=== PATIENT | female | born 1935 | race Hispanic/Latino ===

== ENCOUNTER 2017-12-12 20:09 | Observation (INO) | payer OTHER ==
[~2017-12-12] VITALS: Ht 154.9 cm; Wt 85.3 kg
[2017-12-12] MEDS ORDERED: METHYLPREDNISOLONE SOD SUCC 125MG/2ML VIAL ONE (20:30)
[2017-12-12] MEDS ORDERED: IPRATROPIUM/ALBUTEROL SULFATE 3 ML SOLUTION IH ONE (20:30)
[2017-12-12] MEDS ORDERED: ACETAMINOPHEN-CODEINE 300/30MG TAB ONE (20:31)
[2017-12-12 20:35] LABS: BASOPHILS % (AUTO) 0.7 % (0.0-5.0); EOSINOPHILS % (AUTO) 2.8 % (0.0-8.0); HEMATOCRIT 32.7 % (36-48); LYMPHOCYTES % (AUTO) 14.1 % (21.0-51.0); MEAN CORPUSCULAR HEMOGLOBIN 30.3 pg (27.0-33.0); MEAN CORPUSCULAR VOLUME 86.7 fL (79-99); NEUTROPHILS % (AUTO) 72.4 % (40.0-77.0); PLATELET COUNT (AUTO) 132 K/uL (130-400); RED BLOOD CELL COUNT(AUTO) 3.77 MIL/uL (4.00-5.50); RED CELL DISTRIBUTION WIDTH 14.7 % (11.0-15.5)
[2017-12-12 20:39] LABS: CREATININE 1.2 mg/dL (0.5-1.5); POTASSIUM 3.7 mmol/L (3.5-5.1)
[2017-12-12 20:44] LABS: ALBUMIN 3.4 g/dL (3.5-5.0); BILIRUBIN,TOTAL 0.3 mg/dL (0.2-1.0); TOTAL PROTEIN, SERUM 6.8 g/dL (6.0-8.3)
[2017-12-12] MEDS ORDERED: AZITHROMYCIN 500MG+NS 250ML 250 ML IV ONE (21:40)
[2017-12-12] MEDS ORDERED: SODIUM CHLORIDE 0.9% 50 ML IV ONE (21:40)
[2017-12-12] MEDS ORDERED: CEFTRIAXONE SODIUM 1 GM ONE (21:40)
[2017-12-12] MEDS: IPRATROPIUM/ALBUTEROL SULFATE 3 ML SOLUTION IH SCH (22:50)
[2017-12-12 22:52] VITALS: BP 157/73
[2017-12-13 03:00] VITALS: BP 154/81
[2017-12-13 04:24] LABS: ABG BASE EXCESS -2.4 mmol/L (-2.0-3.0); ABG HCO3 22.6 mmol/L (21.0-28.0); ABG OXYGEN SATURATION 95.5 % (95.0-99.0); ABG PCO2 40 mmHg (32-45)
[2017-12-13 04:28] LABS: APPEARANCE,URINE Clear (CLEAR); BILIRUBIN,URINE Negative (NEGATIVE); COLOR,URINE Yellow (YELLOW); GLUCOSE, URINE (UA) Negative (NEGATIVE); KETONES,URINE Negative (NEGATIVE); LEUKOCYTE ESTERASE ,URINE Negative (NEGATIVE); NITRATE,URINE Negative (NEGATIVE); OCCULT BLOOD,URINE Negative (NEGATIVE); PROTEIN,URINE POS 2+ (NEGATIVE); UROBILINOGEN,URINE 0.2 mg/dL (0.2-1.0)
[2017-12-13 04:45] LABS: BACTERIA,URINE Rare /HPF (None Seen); RBC,URINE 0-1 /HPF (0-1); SQUAMOUS EPITHELIAL CELL,UR 0-2 /HPF (0-2); WBC,URINE 0-1 /HPF (0-1)
[2017-12-13] MEDS: METHYLPREDNISOLONE SOD SUCC 125MG/2ML VIAL IVP SCH ×3 (05:42→21:01)
[2017-12-13 05:53] LABS: HEMATOCRIT 32.1 % (36-48); MEAN CORPUSCULAR HEMOGLOBIN 31.1 pg (27.0-33.0); MEAN CORPUSCULAR HGB CONC 35.8 g/dL (32.0-36.0); MEAN CORPUSCULAR VOLUME 86.8 fL (79-99); PLATELET COUNT (AUTO) 129 K/uL (130-400); RED BLOOD CELL COUNT(AUTO) 3.69 MIL/uL (4.00-5.50); RED CELL DISTRIBUTION WIDTH 14.5 % (11.0-15.5); WHITE BLOOD COUNT (AUTO) 4.7 K/uL (4.8-10.8)
[2017-12-13] MEDS: IPRATROPIUM/ALBUTEROL SULFATE 3 ML SOLUTION IH SCH ×3 (06:00→18:45)
[2017-12-13 06:09] LABS: B-TYPE NATRIURETIC PEPTIDE 276 pg/mL (0-100)
[2017-12-13 06:10] LABS: MAGNESIUM 1.5 mg/dL (1.80-2.40); PHOSPHORUS 3.3 mg/dL (2.5-4.9)
[2017-12-13 07:56] VITALS: BP 178/86
[2017-12-13] MEDS: CEFTRIAXONE SODIUM 1 GM IVP SCH (08:36)
[2017-12-13] MEDS: AZITHROMYCIN 500MG+NS 250ML 250 ML IV SCH (08:36)
[2017-12-13 11:34] VITALS: BP 152/74
[2017-12-13] MEDS ORDERED: POTASSIUM CHLORIDE 20MEQ/100ML 100 ML IV PRN ×2 (13:15)
[2017-12-13] MEDS ORDERED: GUAIFENESIN-CODEINE 5 ML SYRUP PO PRN (13:15)
[2017-12-13] MEDS ORDERED: HYDRALAZINE HCL 20 MG/ML VIAL IV PRN (13:15)
[2017-12-13] MEDS ORDERED: LIDOCAINE HCL-MPF 1% 2ML VIAL IVP PRN ×2 (13:15)
[2017-12-13] MEDS ORDERED: MAGNESIUM 2GM PREMIX 50ML 50 ML IV SCH (13:15)
[2017-12-13] MEDS ORDERED: POTASSIUM CHLORIDE 10% ELIXIR 20 MEQ/15 ML UDCUP PO PRN ×2 (13:15)
[2017-12-13] MEDS ORDERED: POTASSIUM CHLORIDE 20 MEQ ERTAB PO PRN ×2 (13:15)
[2017-12-13 16:37] VITALS: BP 189/79
[2017-12-13] MEDS: BUDESONIDE 0.5 MG/2 ML INH IH SCH (18:45)
[2017-12-13 19:00] VITALS: BP 159/96
[2017-12-13] MEDS ORDERED: LOSA50TA37 PO (21:12)
[2017-12-13] MEDS ORDERED: TRAM50TA4 PO (21:12)
[2017-12-13] MEDS ORDERED: QUIN324C10 PO (21:12)
[2017-12-14] VITALS: BP 141/50
[2017-12-14] MEDS: IPRATROPIUM/ALBUTEROL SULFATE 3 ML SOLUTION IH SCH ×4 (01:22→18:05)
[2017-12-14 04:00] VITALS: BP 137/61
[2017-12-14] MEDS: METHYLPREDNISOLONE SOD SUCC 125MG/2ML VIAL IVP SCH (04:18)
[2017-12-14 04:47] LABS: HEMATOCRIT 30.6 % (36-48); MEAN CORPUSCULAR HEMOGLOBIN 30.6 pg (27.0-33.0); MEAN CORPUSCULAR HGB CONC 35.1 g/dL (32.0-36.0); MEAN CORPUSCULAR VOLUME 87.2 fL (79-99); PLATELET COUNT (AUTO) 127 K/uL (130-400); RED BLOOD CELL COUNT(AUTO) 3.51 MIL/uL (4.00-5.50); RED CELL DISTRIBUTION WIDTH 14.7 % (11.0-15.5); WHITE BLOOD COUNT (AUTO) 9.3 K/uL (4.8-10.8)
[2017-12-14 05:17] LABS: CREATININE 1.1 mg/dL (0.5-1.5); PHOSPHORUS 3.3 mg/dL (2.5-4.9); POTASSIUM 4.4 mmol/L (3.5-5.1); THYROID STIMULATING HORMONE 0.34 uIU/mL (0.36-3.74)
[2017-12-14] MEDS: BUDESONIDE 0.5 MG/2 ML INH IH SCH ×2 (07:15→18:05)
[2017-12-14 08:00] VITALS: BP 141/56
[2017-12-14] MEDS: AZITHROMYCIN 500MG+NS 250ML 250 ML IV SCH (08:59)
[2017-12-14] MEDS: CEFTRIAXONE SODIUM 1 GM IVP SCH (08:59)
[2017-12-14] MEDS: PANTOPRAZOLE SODIUM 40 MG TABLET.DR PO SCH (08:59)
[2017-12-14] MEDS: ENOXAPARIN SODIUM 40 MG/0.4 ML SYRINGE SQ SCH (09:00)
[2017-12-14] MEDS ORDERED: LEVOFLOXACIN 750 MG TABLET PO SCH (10:42)
[2017-12-14 11:00] VITALS: BP 158/62
[2017-12-14] MEDS: ACETYLCYSTEINE 10% 100MG/ML 4ML VIAL IH SCH ×3 (11:03→18:05)
[2017-12-14] MEDS: PREDNISONE 20 MG TABLET PO SCH (11:04)
[2017-12-14 15:30] VITALS: BP 191/75
[2017-12-14] MEDS ORDERED: PREDNISONE 10 MG TABLET PO SCH (15:45)
[2017-12-14] MEDS ORDERED: PREDNISONE 10 MG TABLET ONE (15:56)
[2017-12-14] MEDS ORDERED: LOSARTAN 50 MG TABLET ONE (16:16)
[2017-12-14 19:00] VITALS: BP 151/78
[2017-12-15] VITALS: BP 175/76
[2017-12-15] MEDS: IPRATROPIUM/ALBUTEROL SULFATE 3 ML SOLUTION IH SCH ×3 (00:34→10:48)
[2017-12-15] MEDS: ACETYLCYSTEINE 10% 100MG/ML 4ML VIAL IH SCH ×3 (00:34→10:48)
[2017-12-15 04:00] VITALS: BP 160/75
[2017-12-15] MEDS: BUDESONIDE 0.5 MG/2 ML INH IH SCH (05:57)
[2017-12-15 08:00] VITALS: BP 142/66
[2017-12-15] MEDS ORDERED: LOSARTAN 50 MG TABLET PO SCH (09:00)
[2017-12-15] MEDS: PREDNISONE 20 MG TABLET PO SCH (09:08)
[2017-12-15] MEDS: PANTOPRAZOLE SODIUM 40 MG TABLET.DR PO SCH (09:08)
[2017-12-15] MEDS: ENOXAPARIN SODIUM 40 MG/0.4 ML SYRINGE SQ SCH (09:09)
[2017-12-15 12:00] VITALS: BP 144/95
== END 2017-12-15 16:00 | disposition home or self-care (01) ==
LOC: EDH 20:09 → EDHIP 22:03 → 4BH 23:11 → 3AH 12-14 11:15
PROVIDERS: ADMIT Internal Medicine Critical Care Medicine; ATTEND Internal Medicine Critical Care Medicine
DX: J20.9 Acute bronchitis, unspecified (principal); J44.0 Chronic obstructive pulmonary disease with (acute) lower respiratory infection; J44.1 Chronic obstructive pulmonary disease with (acute) exacerbation; J45.901 Unspecified asthma with (acute) exacerbation; G47.33 Obstructive sleep apnea (adult) (pediatric); J32.9 Chronic sinusitis, unspecified; I10 Essential (primary) hypertension; E66.01 Morbid (severe) obesity due to excess calories; M06.9 Rheumatoid arthritis, unspecified; Z87.01 Personal history of pneumonia (recurrent); F41.9 Anxiety disorder, unspecified; Z87.891 Personal history of nicotine dependence; Z90.49 Acquired absence of other specified parts of digestive tract
CPT/HCPCS: 36415 ×3; 36600; 71046; 71250; 80048; 80053; 81001; 82803; 83605 ×4; 83735 ×2; 83880; 84100 ×2; 84443; 84484; 85025; 85027 ×2; 86431; 87040 ×2; 93005; 94640 ×14; 94664; 96365; 96366; 96372 ×2; 96375 ×2; 96376 ×2; 97116 ×2; 97161; 99285; A4218 ×2; G0378 ×66; G8978; G8979; G8980; G8981; G8982; G8983; J0360; J0456 ×3; J0696 ×3; J1650 ×2; J2930 ×5; J3475; J7512; J7608 ×5

== ENCOUNTER → 2018-04-21 | Outpatient (CLI) | payer OTHER ==
[~2018-04-21] MED LIST: LOSA50TA25 PO; QUIN324C10 PO; REGADENOSON 0.4 MG/5 ML PF SYG IVP SCH; TRAM50TA4 PO
== END | disposition home or self-care (01) ==
LOC: SHCH 08:13
PROVIDERS: ATTEND Internal Medicine Cardiovascular Disease
DX: R06.02 Shortness of breath (principal)
CPT/HCPCS: 78452; 93017; 96374; A9500 ×2; J2785

== ENCOUNTER → 2018-04-23 | Outpatient (CLI) | payer OTHER ==
[~2018-04-23] MED LIST changes: -REGADENOSON 0.4 MG/5 ML PF SYG IVP SCH
== END | disposition home or self-care (01) ==
LOC: SHCH 10:38
PROVIDERS: ATTEND Internal Medicine Cardiovascular Disease
DX: I51.7 Cardiomegaly (principal); I20.9 Angina pectoris, unspecified
CPT/HCPCS: 93306

== ENCOUNTER → 2018-05-26 | Outpatient (CLI) | payer OTHER | END | disposition home or self-care (01) | LOC: SHCH 13:35 | PROVIDERS: ATTEND Internal Medicine Cardiovascular Disease | DX: I87.2 Venous insufficiency (chronic) (peripheral) (principal) | CPT/HCPCS: 93970 ==

== ENCOUNTER 2019-07-14 05:11 | Day surgery (SDC) | payer OTHER ==
[2019-07-10 14:01] LABS: BASOPHILS % (AUTO) 0.5 % (0.0-5.0); EOSINOPHILS % (AUTO) 2.8 % (0.0-8.0); HEMATOCRIT 33.5 % (36-48); LYMPHOCYTES % (AUTO) 27.7 % (21.0-51.0); MEAN CORPUSCULAR HEMOGLOBIN 29.3 pg (27.0-33.0); MEAN CORPUSCULAR HGB CONC 32.2 g/dL (32.0-36.0); MONOCYTES % (AUTO) 8.6 % (3.0-13.0); NEUTROPHILS % (AUTO) 60.1 % (40.0-77.0); PLATELET COUNT (AUTO) 185 K/uL (130-400); RED BLOOD CELL COUNT(AUTO) 3.68 MIL/uL (4.00-5.50); RED CELL DISTRIBUTION WIDTH 13.5 % (11.0-15.5); WHITE BLOOD COUNT (AUTO) 5.8 K/uL (4.8-10.8)
[2019-07-10 14:12] LABS: CREATININE 1.3 mg/dL (0.5-1.5); POTASSIUM 4.6 mmol/L (3.5-5.1)
[2019-07-10 14:12] LABS: APPEARANCE,URINE Clear (CLEAR); BILIRUBIN,URINE Negative (NEGATIVE); COLOR,URINE Yellow (YELLOW); GLUCOSE, URINE (UA) Negative (NEGATIVE); KETONES,URINE Negative (NEGATIVE); LEUKOCYTE ESTERASE ,URINE Trace (NEGATIVE); NITRATE,URINE Positive (NEGATIVE); OCCULT BLOOD,URINE Negative (NEGATIVE); PROTEIN,URINE POS 1+ mg/dL (NEGATIVE)
[2019-07-10 14:38] LABS: INR 0.98 (0.85-1.15); PARTIAL THROMBOPLASTIN TIME 24.4 SEC (26.3-35.5); PROTHROMBIN TIME 10.3 SEC (9.6-11.6)
[2019-07-10 14:58] LABS: BACTERIA,URINE Many /HPF (None Seen); RBC,URINE 0-1 /HPF (0-1); WBC,URINE 0-1 /HPF (0-1)
--- NOTE | 2019-07-13 12:49 | NUR ---
ABNORMAL LABS ABNORMAL LABS REPORTED TO CÉSAR DAILEY; UA-URINE NITRATES POSITIVE, ULEUKEST TRACE, UR BACT MANY, UR SQUAM EPI 10-25, BMP CREAT 1.3, H&H 10.8/33.5. NO FURTHER ORDERS GIVEN, MAY PROCEED WITH PLANNED PROCEDURE.
[~2019-07-14] VITALS: Ht 152.4 cm; Wt 79.4 kg
[2019-07-14] VITALS (20 sets, daily range): BP systolic 117–167; BP diastolic 40–70
[~2019-07-14 05:11] MED LIST changes: +DULO30CA52 PO; +ESOM40VI2 IV; +FENO134C PO; -LOSA50TA25 PO; +LOSA50TA64 PO; +MONT10TA24 PO; +PARO-37 PO; +SODIUM CHLORIDE 0.9% 500ML 500 ML IV SCH; -TRAM50TA4 PO
[2019-07-14] MEDS ORDERED: SODIUM CHLORIDE 0.9% 1000ML 1,000 ML IV ONE (06:15)
[2019-07-14] MEDS ORDERED: ACETAMINOPHEN EXTRA STRENGTH 500 MG TABLET ONE (06:51)
[2019-07-14] MEDS ORDERED: IOHEXOL-350 50ML VIAL IV ONE (07:09)
[2019-07-14] MEDS ORDERED: NITROGLYCERIN 1 MG/VIAL VIAL IV ONE (07:09)
[2019-07-14] MEDS ORDERED: IOHEXOL 350 MG/ML 100ML INFUS..BTL IV ONE (07:09)
[2019-07-14] MEDS ORDERED: BIVALIRUDIN 250 MG/VIAL IV ONE (07:09)
[2019-07-14] MEDS ORDERED: FENTANYL CITRATE PF 50 MCG/1 ML 2ML VIAL ONE (07:10)
[2019-07-14] MEDS ORDERED: MIDAZOLAM HCL 1 MG/ML 2ML VIAL ONE (07:10)
[2019-07-14] MEDS ORDERED: LIDOCAINE HCL 2% 20ML ONE ×2 (07:10→07:40)
--- NOTE | 2019-07-14 07:10 | NUR ---
GEOVANY Curran here to take pt to photo lab specialist. Pt given opportunity to use the restroom but denies needing to. Report given and care rendered over to GEOVANY Curran.
[2019-07-14] MEDS ORDERED: LABETALOL 20 MG/4 ML DISP.SYRIN IV ONE (07:57)
[2019-07-14] MEDS ORDERED: SODIUM CHLORIDE 0.9% 1000ML 1,000 ML IV SCH (08:11)
[2019-07-14] MEDS ORDERED: DEXTROSE 50%-WATER 50 ML DISP.SYRIN IV PRN (08:15)
[2019-07-14] MEDS ORDERED: NITROGLYCERIN 0.4 MG SL TAB SL PRN (08:15)
[2019-07-14] MEDS ORDERED: METOPROLOL TARTRATE 1 MG/ML 5ML VIAL IV PRN (08:15)
[2019-07-14] MEDS ORDERED: GLUCAGON 1MG KIT 1 MG ML IM PRN (08:15)
[2019-07-14] MEDS ORDERED: HYDRALAZINE HCL 20 MG/ML VIAL IV PRN (08:15)
--- NOTE | 2019-07-14 14:50 | NUR ---
Pt discharged home, tolerating fluids/solids well, voiding well, ambulating well. Pt denies any pain, nausea or dizziness. Dressing to right groin remains dry, clean and intact, cath site soft, non-tender. Pt instructed in emergency and routine care of right femoral cath site. Prescription given to pt for Losartan. Pt instructed to stop 50 mg Losartan and start 100 mg of Losartan daily. Pt and family deny any further questions at this time.
== END 2019-07-14 14:50 | disposition home or self-care (01) ==
LOC: DAH 05:11
PROVIDERS: ATTEND Internal Medicine Cardiovascular Disease
DX: I25.118 Atherosclerotic heart disease of native coronary artery with other forms of angina pectoris (principal); I11.0 Hypertensive heart disease with heart failure; I50.32 Chronic diastolic (congestive) heart failure; M19.90 Unspecified osteoarthritis, unspecified site; J44.9 Chronic obstructive pulmonary disease, unspecified; Z79.899 Other long term (current) drug therapy; Z90.710 Acquired absence of both cervix and uterus; Z98.890 Other specified postprocedural states; Z87.891 Personal history of nicotine dependence; Z83.3 Family history of diabetes mellitus; Z82.49 Family history of ischemic heart disease and other diseases of the circulatory system
CPT/HCPCS: 36252; 36415; 71045; 80048; 81001; 85025; 85610; 85730; 93005; 93458; A4215; A4216; A4221; A4222; A4223 ×3; A4606; A4663; A6260; A6402; C1894 ×2; J1644; J2250; J3010; J3490 ×3; J7030; Q9965; Q9967 ×2; 99156; 99157; J0583

== ENCOUNTER → 2020-03-18 | Outpatient (CLI) | payer OTHER ==
[~2020-03-18] MED LIST changes: -LOSA50TA64 PO; -MONT10TA24 PO; +MONT10TA26 PO; -SODIUM CHLORIDE 0.9% 500ML 500 ML IV SCH
== END | disposition home or self-care (01) ==
LOC: SHCH 09:54
PROVIDERS: ATTEND Internal Medicine Cardiovascular Disease
DX: I51.7 Cardiomegaly (principal); I35.8 Other nonrheumatic aortic valve disorders; R06.09 Other forms of dyspnea; R07.9 Chest pain, unspecified
CPT/HCPCS: 93306

== ENCOUNTER → 2021-02-14 | Outpatient (CLI) | payer OTHER ==
[~2021-02-14] MED LIST changes: -MONT10TA26 PO; +MONT10TA32 PO
== END | disposition home or self-care (01) ==
LOC: SHCH 14:22
PROVIDERS: ATTEND Internal Medicine Cardiovascular Disease
DX: K21.9 Gastro-esophageal reflux disease without esophagitis (principal); I73.9 Peripheral vascular disease, unspecified; I87.2 Venous insufficiency (chronic) (peripheral)
CPT/HCPCS: 93925; 93970

== ENCOUNTER 2021-05-19 19:50 | Emergency (ER) | payer OTHER ==
[~2021-05-19] VITALS: Ht 157.5 cm; Wt 70.3 kg
[~2021-05-19 19:50] MED LIST changes: +MONT-39 PO; -MONT10TA32 PO
[2021-05-19 22:17] LABS: BASOPHILS % (AUTO) 0.1 % (0.0-5.0); EOSINOPHILS % (AUTO) 1.8 % (0.0-8.0); HEMATOCRIT 30.3 % (36-48); LYMPHOCYTES % (AUTO) 18.9 % (21.0-51.0); MEAN CORPUSCULAR HEMOGLOBIN 26.8 pg (27.0-33.0); MEAN CORPUSCULAR HGB CONC 31.4 g/dL (32.0-36.0); MEAN CORPUSCULAR VOLUME 85.4 fL (79-99); MONOCYTES % (AUTO) 8.6 % (3.0-13.0); NEUTROPHILS % (AUTO) 70.3 % (40.0-77.0); PLATELET COUNT (AUTO) 160 K/uL (130-400); RED BLOOD CELL COUNT(AUTO) 3.55 MIL/uL (4.00-5.50); RED CELL DISTRIBUTION WIDTH 14.5 % (11.0-15.5); WHITE BLOOD COUNT (AUTO) 7.2 K/uL (4.8-10.8)
[2021-05-19 22:19] LABS: APPEARANCE,URINE Clear (CLEAR); BILIRUBIN,URINE Negative (NEGATIVE); COLOR,URINE Yellow (YELLOW); GLUCOSE, URINE (UA) Negative (NEGATIVE); KETONES,URINE Negative (NEGATIVE); LEUKOCYTE ESTERASE ,URINE Negative (NEGATIVE); NITRATE,URINE Negative (NEGATIVE); OCCULT BLOOD,URINE Negative (NEGATIVE); PROTEIN,URINE POS 2+ mg/dL (NEGATIVE)
[2021-05-19 22:29] LABS: CREATININE 1.1 mg/dL (0.5-1.5); POTASSIUM 3.7 mmol/L (3.5-5.1)
[2021-05-19 22:38] LABS: ALBUMIN 3.1 g/dL (3.5-5.0); BILIRUBIN,TOTAL 0.5 mg/dL (0.2-1.0); TOTAL PROTEIN, SERUM 6.7 g/dL (6.0-8.3)
[2021-05-19 22:41] LABS: BACTERIA,URINE None Seen /HPF (None Seen); MUCUS,URINE Rare LPF (None Seen); RBC,URINE None Seen /HPF (0-1); SQUAMOUS EPITHELIAL CELL,UR Few /HPF (0-2); WBC,URINE None Seen /HPF (0-1)
[2021-05-19] MEDS ORDERED: IOHEXOL 350 MG/ML 100ML INFUS..BTL IV ONE (23:15)
[2021-05-20 01:59] VITALS: BP 140/65
[2021-05-20] MEDS ORDERED: AZITHROMYCIN 500MG+NS 250ML IV ONE (02:00)
[2021-05-20] MEDS ORDERED: AMOX-429 PO (02:11)
== END 2021-05-20 03:53 | disposition home or self-care (01) ==
LOC: EDH 19:50
DX: J18.9 Pneumonia, unspecified organism (principal); R91.8 Other nonspecific abnormal finding of lung field; E78.00 Pure hypercholesterolemia, unspecified; I10 Essential (primary) hypertension; I25.10 Atherosclerotic heart disease of native coronary artery without angina pectoris; Z79.899 Other long term (current) drug therapy
CPT/HCPCS: 36415; 71045; 71275; 80053; 81001; 83605; 84484; 85025; 87040 ×2; 93005; 96365; 96366; 99285; J0456; Q9967

== ENCOUNTER → 2021-11-03 | Outpatient (CLI) | payer OTHER ==
[~2021-11-03] VITALS: Ht 152.4 cm; Wt 79.4 kg
[~2021-11-03] MED LIST changes: +AMOX-429 PO; -FENO134C PO; +FENO134C21 PO; +REGADENOSON 0.4 MG/5 ML PF SYG IVP SCH
== END | disposition home or self-care (01) ==
LOC: SHCH 08:39
PROVIDERS: ATTEND Internal Medicine Cardiovascular Disease
DX: I20.9 Angina pectoris, unspecified (principal)
CPT/HCPCS: 78452; 93017; 96374; A9500 ×2; J2785

== ENCOUNTER 2022-05-04 18:02 | Emergency (ER) | payer OTHER ==
[~2022-05-04] VITALS: Ht 152.4 cm; Wt 79.8 kg
[~2022-05-04 18:02] MED LIST changes: -REGADENOSON 0.4 MG/5 ML PF SYG IVP SCH
[2022-05-04 18:43] LABS: BASOPHILS % (AUTO) 0.2 % (0.0-5.0); EOSINOPHILS % (AUTO) 2.4 % (0.0-8.0); HEMATOCRIT 34.9 % (36-48); LYMPHOCYTES % (AUTO) 29.5 % (21.0-51.0); MEAN CORPUSCULAR HEMOGLOBIN 29.5 pg (27.0-33.0); MEAN CORPUSCULAR HGB CONC 33.8 g/dL (32.0-36.0); MEAN CORPUSCULAR VOLUME 87.3 fL (79-99); MONOCYTES % (AUTO) 10.3 % (3.0-13.0); NEUTROPHILS % (AUTO) 56.9 % (40.0-77.0); PLATELET COUNT (AUTO) 152 K/uL (130-400); RED CELL DISTRIBUTION WIDTH 13.1 % (11.0-15.5); WHITE BLOOD COUNT (AUTO) 5.5 K/uL (4.8-10.8)
[2022-05-04 18:52] LABS: APPEARANCE,URINE CLEAR (CLEAR); BILIRUBIN,URINE NEGATIVE (NEGATIVE); COLOR,URINE COLORLESS (YELLOW); GLUCOSE, URINE (UA) NEGATIVE (NEGATIVE); KETONES,URINE NEGATIVE (NEGATIVE); LEUKOCYTE ESTERASE ,URINE NEGATIVE Leu/uL (NEGATIVE); NITRATE,URINE NEGATIVE (NEGATIVE); OCCULT BLOOD,URINE NEGATIVE (NEGATIVE); PROTEIN,URINE NEGATIVE (NEGATIVE); UROBILINOGEN,URINE 0.2 mg/dL (0.2-1.0)
[2022-05-04 18:56] LABS: CREATININE 1.6 mg/dL (0.5-1.5); POTASSIUM 4.6 mmol/L (3.5-5.1)
[2022-05-04 19:00] LABS: ALBUMIN 3.6 g/dL (3.5-5.0); TOTAL PROTEIN, SERUM 7.1 g/dL (6.0-8.3)
[2022-05-04] MEDS ORDERED: ONDANSETRON 4MG INJ IVP ONE (20:00)
[2022-05-04] MEDS ORDERED: MORPHINE 2 MG SYG IM ONE (20:00)
[2022-05-04 20:22] VITALS: BP 137/71
[2022-05-04] MEDS ORDERED: IBUP-1493 PO (21:03)
[2022-05-04] MEDS ORDERED: ONDA-104 PO (21:03)
== END 2022-05-04 21:19 | disposition home or self-care (01) ==
LOC: EDH 18:02
DX: K80.20 Calculus of gallbladder without cholecystitis without obstruction (principal); M19.90 Unspecified osteoarthritis, unspecified site; E78.00 Pure hypercholesterolemia, unspecified; I10 Essential (primary) hypertension; Z98.890 Other specified postprocedural states; Z79.899 Other long term (current) drug therapy
CPT/HCPCS: 99285; 96374; 76705; 71046; 80053; 85025; 81003; 36415; 71101; 96372; J2405

== ENCOUNTER → 2022-06-21 | Outpatient (CLI) | payer OTHER ==
[~2022-06-21] MED LIST changes: +IBUP-1493 PO; +ONDA-104 PO
== END | disposition home or self-care (01) ==
LOC: SHCH 11:18
PROVIDERS: ATTEND Internal Medicine Cardiovascular Disease
DX: I08.0 Rheumatic disorders of both mitral and aortic valves (principal); E78.5 Hyperlipidemia, unspecified
CPT/HCPCS: 93306

== ENCOUNTER 2022-09-24 08:48 | Day surgery (SDC) | payer OTHER ==
[2022-09-20 11:25] LABS: BASOPHILS % (AUTO) 0.4 % (0.0-5.0); EOSINOPHILS % (AUTO) 1.3 % (0.0-8.0); HEMATOCRIT 31.7 % (36-48); LYMPHOCYTES % (AUTO) 22.2 % (21.0-51.0); MEAN CORPUSCULAR HEMOGLOBIN 30.4 pg (27.0-33.0); MEAN CORPUSCULAR HGB CONC 33.1 g/dL (32.0-36.0); MEAN CORPUSCULAR VOLUME 91.9 fL (79-99); MONOCYTES % (AUTO) 10.7 % (3.0-13.0); NEUTROPHILS % (AUTO) 63.7 % (40.0-77.0); PLATELET COUNT (AUTO) 180 K/uL (130-400); RED BLOOD CELL COUNT(AUTO) 3.45 MIL/uL (4.00-5.50); RED CELL DISTRIBUTION WIDTH 13.8 % (11.0-15.5); WHITE BLOOD COUNT (AUTO) 4.6 K/uL (4.8-10.8)
[2022-09-20 11:35] LABS: PROTHROMBIN TIME 10.9 SEC (9.6-11.6)
[2022-09-20 11:36] LABS: PARTIAL THROMBOPLASTIN TIME 26.5 SEC (26.3-35.5)
[2022-09-20 11:37] LABS: CREATININE 1.6 mg/dL (0.5-1.5); POTASSIUM 4.8 mmol/L (3.5-5.1)
[2022-09-20 11:42] VITALS: BP 149/60
[2022-09-20 11:45] LABS: APPEARANCE,URINE CLEAR (CLEAR); BILIRUBIN,URINE NEGATIVE (NEGATIVE); COLOR,URINE COLORLESS (YELLOW); GLUCOSE, URINE (UA) NEGATIVE (NEGATIVE); KETONES,URINE NEGATIVE (NEGATIVE); LEUKOCYTE ESTERASE ,URINE NEGATIVE Leu/uL (NEGATIVE); NITRATE,URINE NEGATIVE (NEGATIVE); OCCULT BLOOD,URINE NEGATIVE (NEGATIVE); PROTEIN,URINE NEGATIVE (NEGATIVE); UROBILINOGEN,URINE 0.2 mg/dL (0.2-1.0)
[2022-09-20 21:15] LABS: B-TYPE NATRIURETIC PEPTIDE 183 pg/mL (0-100)
[~2022-09-24] VITALS: Ht 152.4 cm; Wt 75.7 kg
[2022-09-24] VITALS (9 sets, daily range): BP systolic 108–171; BP diastolic 51–68
[~2022-09-24 08:48] MED LIST changes: -AMOX-429 PO; -DULO30CA52 PO; -ESOM40VI2 IV; +FLUT1BLS3 IH; -IBUP-1493 PO; -MONT-39 PO; +OLME-7 PO; +OMEP40CA21 PO; -ONDA-104 PO; +OXYB5TAB15 PO; -PARO-37 PO; -QUIN324C10 PO
[2022-09-24] MEDS ORDERED: 0.9%NACL 1000ML 1,000 ML IV ONE ×2 (10:00→10:48)
[2022-09-24] MEDS ORDERED: BIVALIRUDIN 250 MG/VIAL IV ONE (11:48)
[2022-09-24] MEDS ORDERED: NITROGLYCERIN 50MG VIAL ONE (11:48)
[2022-09-24] MEDS ORDERED: IOHEXOL-350 50ML VIAL IV ONE ×2 (11:48→12:46)
[2022-09-24] MEDS ORDERED: MIDAZOLAM HCL 1 MG/ML 2ML VIAL ONE (11:48)
[2022-09-24] MEDS ORDERED: HEPARIN 10,000 UNIT/10ML (1,000 UNIT/ML) VIAL ONE ×2 (11:48→12:45)
[2022-09-24] MEDS ORDERED: FENTANYL CITRATE PF 50 MCG/1 ML 2ML VIAL ONE (11:49)
[2022-09-24] MEDS ORDERED: LIDOCAINE HCL 400MG/20ML VIAL ONE (11:49)
[2022-09-24] MEDS ORDERED: DEXTROSE 50%-WATER 50 ML DISP.SYRIN IV PRN (13:00)
[2022-09-24] MEDS ORDERED: 0.9%NACL 1000ML 1,000 ML IV SCH (13:00)
[2022-09-24] MEDS ORDERED: GLUCAGON 1MG KIT 1 MG ML IM PRN (13:00)
== END 2022-09-24 17:07 | disposition home or self-care (01) ==
LOC: DAH 08:48 → EDSTATUS 10:30 → DAH 17:07
PROVIDERS: ATTEND Internal Medicine Cardiovascular Disease
DX: I35.0 Nonrheumatic aortic (valve) stenosis (principal); I25.119 Atherosclerotic heart disease of native coronary artery with unspecified angina pectoris; I10 Essential (primary) hypertension; I50.32 Chronic diastolic (congestive) heart failure; Z79.01 Long term (current) use of anticoagulants; Z79.899 Other long term (current) drug therapy; Z98.890 Other specified postprocedural states
CPT/HCPCS: 80048; 83880; 85025; 85610; 85730; 81003; 36415; 71045; 93005 ×2; 93454; C1894 ×3; J3010; J3490 ×2; J7030 ×2; J1644 ×3; J2250; Q9967 ×2; A4215; A4222; A4221; A4663; A4216; A4606; A4223 ×3; 99156; 99157; J0583

== ENCOUNTER 2022-11-12 01:24 | Emergency (ER) | payer OTHER ==
[~2022-11-12] VITALS: Ht 154.9 cm; Wt 76.2 kg
[2022-11-12] MEDS ORDERED: LIDOCAINE HCL 2% VISCOUS 15 ML UDCUP PO ONE (02:30)
[2022-11-12] MEDS ORDERED: KETOROLAC 60 MG VIAL (30MG/ML) IM ONE (02:30)
[2022-11-12] MEDS ORDERED: MAGIC MM (02:38)
[2022-11-12] MEDS ORDERED: ACET-2079 PO (02:38)
[2022-11-12 02:59] VITALS: BP 130/55
[2022-11-12] MEDS ORDERED: KETOROLAC 30MG VIAL (30MG/ML) IM ONE (03:00)
== END 2022-11-12 03:00 | disposition home or self-care (01) ==
LOC: EDH 01:24
DX: K12.0 Recurrent oral aphthae (principal); K13.79 Other lesions of oral mucosa; I10 Essential (primary) hypertension; E78.00 Pure hypercholesterolemia, unspecified; M19.90 Unspecified osteoarthritis, unspecified site; Z90.710 Acquired absence of both cervix and uterus
CPT/HCPCS: 99283; 96372; J1885